=== PATIENT | female | born 1985 | race Caucasian/White ===

== ENCOUNTER 2018-02-20 17:36 | Observation (INO) | payer MEDICAID ==
[2018-02-20 18:39] LABS: ADD UMIC NO; UR ASCORBIC ACID NEGATIVE (NEGATIVE); UR BILIRUBIN (Dip) NEGATIVE (NEGATIVE); UR BLOOD (Dip) NEGATIVE (NEGATIVE); UR CLARITY CLEAR (CLEAR); UR COLOR COLORLESS (YELLOW); UR GLUCOSE (Dip) NEGATIVE (NEGATIVE); UR KETONES (Dip) 1+ mg/dL (NEGATIVE); UR LEUKOCYTE ESTERASE (Dip) NEGATIVE Leu/ul (NEGATIVE); UR NITRITE (Dip) NEGATIVE (NEGATIVE); UR SPECIFIC GRAVITY (Dip) 1.004 (1.003-1.030); UR TOTAL PROTEIN (Dip) NEGATIVE (NEGATIVE); UR UROBILINOGEN (Dip) NEGATIVE (NEGATIVE)
[2018-02-20 18:49] LABS: ADD MAN DIFF? NO
[2018-02-20 18:51] LABS: BASOPHILS % 0.3 % (0.0-2.0); EOSINOPHILS # 0.2 10^3/ul (0.0-0.5); EOSINOPHILS % 1.6 % (0.0-7.0); HEMATOCRIT 38.8 % (37.0-47.0); HEMOGLOBIN 13.4 g/dl (12.0-16.0); LYMPHOCYTES # 2.4 10^3/ul (0.8-2.9); LYMPHOCYTES % 20.2 % (15.0-51.0); MEAN CORPUSCULAR HGB CONC 34.5 g/dl (32.0-37.0); MEAN PLATELET VOLUME 8.7 fl (7.4-10.4); MONOCYTE # 0.7 10^3/ul (0.3-0.9); MONOCYTES % 5.8 % (0.0-11.0); NEUTROPHIL # 8.6 10^3/ul (1.6-7.5); NEUTROPHILS % 71.7 % (39.0-77.0); PLATELET COUNT 265 10^3/UL (140-415); RED BLOOD COUNT 4.46 10^6/ul (4.20-5.40); RED CELL DISTRIBUTION WIDTH 12.4 % (11.5-14.5)
[2018-02-21] MEDS: CEFAZOLIN 2 GM/50 ML (PMX) 50 ML IVPB (00:30)
[2018-02-21] MEDS ORDERED: DIPHENHYDRAMINE 50 MG INJ IV (01:00)
[2018-02-21] MEDS ORDERED: ONDANSETRON 4 MG INJ IV ×2 (01:00→04:00)
[2018-02-21] MEDS ORDERED: MEPERIDINE 25 MG INJ IV (01:00)
[2018-02-21] MEDS ORDERED: FENTAnyl 50 MCG/ML VIAL IV (01:00)
[2018-02-21] MEDS ORDERED: MIDAZOLAM 1 MG/ML 2 ML INJ (01:03)
[2018-02-21] MEDS ORDERED: LIDOCAINE 2% (SDV) 5 ML INJ (01:06)
[2018-02-21] MEDS ORDERED: SUCCINYLCHOLINE CHLORIDE 100 MG/5 ML SYG IV (01:06)
[2018-02-21] MEDS ORDERED: PROPOFOL 20 ML (01:06)
[2018-02-21] MEDS ORDERED: ROCURONIUM 50 MG INJ (01:06)
[2018-02-21] MEDS ORDERED: FENTAnyl 50 MCG/ML VIAL (01:06)
[2018-02-21] MEDS ORDERED: CEFAZOLIN 1 GM INJ (01:12)
[2018-02-21] MEDS ORDERED: DEXAMETHASONE 4 MG/ML 1 ML INJ (01:16)
[2018-02-21] MEDS ORDERED: FAMOTIDINE 20 MG INJ (01:16)
[2018-02-21] MEDS ORDERED: ONDANSETRON 4 MG INJ (01:16)
[2018-02-21] MEDS ORDERED: HYDROmorphONE 2 MG/ML SYG (01:55)
[2018-02-21] MEDS: BUPIVACAINE 0.25%/EPI (MDV) 50 ML VIAL INJ (02:54)
[2018-02-21] MEDS ORDERED: GLYCOPYRROLATE 0.4 MG INJ (03:08)
[2018-02-21] MEDS ORDERED: NEOSTIGMINE 3 MG/3 ML SYRINGE (03:08)
[2018-02-21] MEDS: PROCHLORPERAZINE 10 MG INJ IV (03:29)
[2018-02-21] MEDS: LACTATED RINGER'S 1,000 ML IV ×2 (03:48→10:13)
[2018-02-21] MEDS ORDERED: HYDROCODONE/APAP (5/325) TAB PO (04:00)
[2018-02-21] MEDS: HYDROmorphONE 1 MG/5 ML IV SYRINGE IV ×2 (04:01→04:19)
[2018-02-21] MEDS: METOCLOPRAMIDE 10 MG INJ IV ×3 (04:01→12:51)
[2018-02-21] MEDS ORDERED: KETOROLAC 30 MG INJ (04:05)
[2018-02-21] MEDS: KETOROLAC 30 MG INJ IV (04:07)
[2018-02-21] MEDS: HYDROCODONE/APAP (5/325) TAB PO (10:11)
[2018-02-21] MEDS: IBUPROFEN 600 MG TAB PO (12:49)
== END 2018-02-21 16:25 | disposition home or self-care (01) ==
LOC: SDS 02-21 00:18 → FTE 17:36 → MS1 02-21 03:59
DX: O00.102 Left tubal pregnancy without intrauterine pregnancy (principal); N83.8 Other noninflammatory disorders of ovary, fallopian tube and broad ligament
CPT/HCPCS: 59151; 76801; 76817; 81003; 84702; 85025; 86850; 86900; 86901; 86920; 87086; 88305; 99285-25

== ENCOUNTER 2018-03-08 15:59 | Emergency (ER) | payer MEDICAID ==
[2018-03-08] MEDS: MUPIROCIN 2% 22 GM OINT TOP (17:35)
== END 2018-03-08 17:52 | disposition home or self-care (01) ==
LOC: FTE 15:59
DX: T81.4XXA Infection following a procedure, initial encounter (principal); L03.316 Cellulitis of umbilicus; Y73.3 Surgical instruments, materials and gastroenterology and urology devices (including sutures) associated with adverse incidents
CPT/HCPCS: 99282; Z7610

== ENCOUNTER 2019-04-06 10:26 | Emergency (ER) | payer MEDICAID | END 2019-04-06 11:45 | disposition home or self-care (01) | LOC: FTE 10:26 | DX: J02.9 Acute pharyngitis, unspecified (principal) | CPT/HCPCS: 99282 ==

== ENCOUNTER 2019-04-09 16:14 | Emergency (ER) | payer MEDICAID | END 2019-04-09 16:30 | disposition home or self-care (01) | LOC: E/R 16:14 | DX: J02.9 Acute pharyngitis, unspecified (principal); H92.03 Otalgia, bilateral | CPT/HCPCS: 99282; Z7502 ==

== ENCOUNTER 2019-04-10 13:31 | Emergency (ER) | payer MEDICAID ==
[2019-04-10 15:12] LABS: ADD MAN DIFF? NO
[2019-04-10 15:17] LABS: WHITE BLOOD COUNT 11.3 10^3/ul (4.8-10.8)
[2019-04-10 15:17] LABS: BASOPHILS % 0.4 % (0.0-2.0); EOSINOPHILS # 0.2 10^3/ul (0.0-0.5); EOSINOPHILS % 1.4 % (0.0-7.0); HEMATOCRIT 34.3 % (37.0-47.0); HEMOGLOBIN 11.5 g/dl (12.0-16.0); LYMPHOCYTES # 2.5 10^3/ul (0.8-2.9); MEAN CORPUSCULAR HGB CONC 33.5 g/dl (32.0-37.0); MEAN CORPUSCULAR VOLUME 86.6 fl (82.0-101.0); MEAN PLATELET VOLUME 8.6 fl (7.4-10.4); MONOCYTES % 8.6 % (0.0-11.0); NEUTROPHIL # 7.6 10^3/ul (1.6-7.5); PLATELET COUNT 346 10^3/UL (140-415); RED BLOOD COUNT 3.96 10^6/ul (4.20-5.40); RED CELL DISTRIBUTION WIDTH 11.9 % (11.5-14.5)
[2019-04-10 15:40] LABS: ALANINE AMINOTRANSFERASE 45 IU/L (13-69); ALBUMIN 4.2 g/dl (3.3-4.9); ALBUMIN/GLOBULIN RATIO 1.13; ALKALINE PHOSPHATASE 138 IU/L (42-121); ANION GAP 10 (5-13); ASPARTATE AMINO TRANSFERASE 28 IU/L (15-46); BILIRUBIN,INDIRECT 0.4 mg/dl (0-1.1); BILIRUBIN,TOTAL 0.4 mg/dl (0.2-1.3); BLOOD UREA NITROGEN 13 mg/dl (7-20); CALCIUM 9.5 mg/dl (8.4-10.2); CARBON DIOXIDE 25 mmol/L (21-31); CHLORIDE 110 mmol/L (97-110); CREATININE 0.49 mg/dl (0.44-1.00); Estimated GFR > 60 mL/min (>60); GLUCOSE 101 mg/dl (70-220); POTASSIUM 4.2 mmol/L (3.5-5.1); SODIUM 145 mmol/L (135-144); TOTAL PROTEIN 7.9 g/dl (6.1-8.1)
[2019-04-10 16:18] LABS: THYROID STIMULATING HORMONE < 0.015 MIU/L (0.465-4.680)
== END 2019-04-10 17:10 | disposition home or self-care (01) ==
LOC: FTE 17:10
DX: E07.9 Disorder of thyroid, unspecified (principal)
CPT/HCPCS: 80053; 84443; 85025; 99283